=== PATIENT | female | born 1995 | race Caucasian/White ===

== ENCOUNTER 2021-06-15 09:56 | Emergency (ER) | payer BC ==
[~2021-06-15] VITALS: Ht 167.6 cm; Wt 59.0 kg
--- NOTE | 2021-06-15 10:45 | NUR ---
TO ER BED 12 AWAITING MD HALEY
--- NOTE | 2021-06-15 11:00 | NUR ---
PT BIBS WENT TO URGENT CARE TODAY FOR short of breath yesterday and developed 8/10 chest pain today; WAS TOLD BY URGERNT CARE TO GO TO ER. PT HAS BEEN COUGHING FOR 1 MONTH WITH NO RELIEF; PAIN UPON COUGHING. PT A/OX4; TOLERATING R/A AT 99%. CONNECTED PT TO TELE MONITOR AND POX.
[2021-06-15] MEDS ORDERED: ONDANSETRON HCL/PF 4 MG/2 ML VIAL ONE (11:17)
--- NOTE | 2021-06-15 11:25 | NUR ---
URINE SAMPLE COLLECTED AND SENT TO LAB
[2021-06-15] MEDS ORDERED: ONDANSETRON HCL/PF - ER 4 MG/2 ML VIAL IV ONE (11:30)
[2021-06-15] MEDS ORDERED: IV NS 0.9% 1,000 ML BAG IV ONE (11:30)
[2021-06-15 11:34] LABS: BASOPHILS # (AUTO) 0.2 K/uL (0.0-0.2); BASOPHILS % (AUTO) 1.9 % (0.0-2.0); EOSINOPHILS % (AUTO) 0.7 % (0.0-6.0); HEMATOCRIT 40 % (33-45); HEMOGLOBIN 13.4 g/dL (11.5-14.8); LYMPHOCYTES # (AUTO) 3.2 K/uL (0.8-4.8); LYMPHOCYTES % (AUTO) 36.5 % (20.0-44.0); MEAN CORPUSCULAR HGB CONC 33 g/dl (31.0-36.0); MEAN CORPUSCULAR VOLUME 91 fL (82-100); MONOCYTES # (AUTO) 0.7 K/uL (0.1-1.30); MONOCYTES % (AUTO) 8.4 % (2.0-12.0); NEUTROPHILS # (AUTO) 4.6 K/uL (1.8-8.9); NEUTROPHILS % (AUTO) 52.5 % (43.0-81.0); PLATELET COUNT (AUTO) 299 K/uL (150-450); RED BLOOD CELL COUNT(AUTO) 4.43 MIL/uL (4.0-5.2); WHITE BLOOD COUNT (AUTO) 8.7 K/uL (4.3-11.0)
--- NOTE | 2021-06-15 11:35 | NUR ---
BLOOD WORK COLLECTED AND GIVEN TO LAB
--- NOTE | 2021-06-15 11:35 | NUR ---
INITIATED RAC #20G S/L; PATENT AND INTACT. IVF NS INFUSING AT THIS TIME.
[2021-06-15 11:44] LABS: CARBON DIOXIDE 30 mmol/L (21-32); CHLORIDE 105 mmol/L (98-107); CREATININE 0.8 mg/dL (0.6-1.3); GLUCOSE 87 mg/dL (74-106); POTASSIUM 3.9 mmol/L (3.5-5.1); SODIUM SERUM 141 mmol/L (136-145); UREA NITROGEN, BLOOD 16 mg/dL (7-18)
--- NOTE | 2021-06-15 11:45 | NUR ---
COLLECTED COVID SWAB VIA L MOLDER FLOOR AND SENT TO LAB
--- NOTE | 2021-06-15 11:48 | NUR ---
TONY COLE AT PT'S BEDSIDE
[2021-06-15 11:50] LABS: ALANINE AMINOTRANSFERASE 21 U/L (12-78); ALBUMIN 4.3 g/dL (3.4-5.0); ALKALINE PHOSPHATASE 54 U/L (46-116); ASPARTATE AMINOTRANSFERASE 19 U/L (15-37); BILIRUBIN,DIRECT 0.1 mg/dL (0.0-0.2); BILIRUBIN,TOTAL 0.4 mg/dL (0.2-1.0); LIPASE 92 U/L (73-393)
--- NOTE | 2021-06-15 12:01 | NUR ---
PROFESSIONAL ORGANIZER AT PT'S BEDSIDE
[2021-06-15 12:21] LABS: LIPASE 95 U/L (73-393)
[2021-06-15] MEDS ORDERED: KETOROLAC TROMETHAMINE INJ 30 MG/ML VIAL IV ONE (12:30)
[2021-06-15] MEDS ORDERED: GUAIFENESIN/CODEINE 10 ML UDC ONE (12:35)
[2021-06-15] MEDS ORDERED: KETOROLAC TROMETHAMINE INJ 30 MG/ML VIAL ONE (12:35)
[2021-06-15 12:55] VITALS: BP 120/87
[2021-06-15] MEDS ORDERED: GUAIFENESIN/CODEINE 10 ML UDC PO PRN (13:00)
[2021-06-15] MEDS ORDERED: IBUP-1955 PO (14:37)
[2021-06-15] MEDS ORDERED: GUAI5SYR4 GT (14:40)
== END 2021-06-15 14:43 | disposition home or self-care (01) ==
LOC: ER 10:30
DX: J40 Bronchitis, not specified as acute or chronic (principal); R07.89 Other chest pain; I49.1 Atrial premature depolarization; Z20.822 Contact with and (suspected) exposure to COVID-19
CPT/HCPCS: 36415; 71045; 80048; 80076; 83690 ×2; 84484; 84702; 85025; 87426; 93005 ×2; 96361; 96374; 96375; 99285; C9803; J1885; J2405; J7030